=== PATIENT | female | born 1940 | race Caucasian/White ===

== ENCOUNTER 2017-05-12 15:49 | Emergency (ER) | payer MEDICARE ==
[~2017-05-12] VITALS: Ht 157.5 cm; Wt 55.0 kg
[~2017-05-12 15:49] MED LIST: ASPI81TA23 PO; DEXA6TAB PO; METO25TA3 PO; NINLARO PO; OXYC-395 PO; VENL75TA PO; [UNRECOGNIZED DRUG - OTHER] PO
[2017-05-12 15:58] VITALS: BP 135/72; PULSE 98; RESP 16; TEMP 98.8; O2SAT 98
--- NOTE | 2017-05-12 17:00 | PD ---
HPI Chief Complaint: Injury Time Seen by Provider: 17:00 Travel History International Travel<30 days: No Contact w/Intl Traveler<30days: No Traveled to known affect area: No History of Present Illness HPI 76-year-old female here with right foot swelling ecchymosis after a twisting injury 3 days ago. Patient reports she twisted the foot and fell onto the right side. She denies head injury or loss of consciousness. Patient is anticoagulated. She denies headache, nausea or vomiting. She reports mild pain within the right foot. She denies any other symptoms. She sought evaluation today because the foot began to bruise and she was concerned. She has normal sensation. Symptom severity is mild. PFSH Past Medical History Arthritis: Yes Anxiety: Yes Depression: No Heart Rhythm Problems: No Cancer: Yes High Cholesterol: No Chemotherapy: Yes Chest Pain: No Congestive Heart Failure: No Cerebrovascular Accident: Yes Diminished Hearing: No Endocrine: No Genitourinary: No Immune Disorder: No Musculoskeletal: Yes Neurologic: Yes Psychiatric: Yes Reproductive: No Respiratory: No Migraines: No Pneumonia: Yes Radiation Therapy: No Seizures: No Sickle Cell Disease: No Menopausal: Yes Past Surgical History Abdominal Surgery: No Cardiac Surgery: No Ear Surgery: No Endocrine Surgery: No Eye Surgery: No Genitourinary Surgery: No Gynecologic Surgery: No Oral Surgery: No Thoracic Surgery: No Other Surgery: Yes (BONE MARROW) Social History Alcohol Use: Yes (WINE DAILY OR LESS) Tobacco Use: No Substance Use: No Allergies-Medications (Allergen,Severity, Reaction): Coded Allergies: No Known Allergies (Verified Adverse Reaction, Unknown, 05/12/17) Reported Meds & Prescriptions Reported Meds & Active Scripts Active Reported Eliquis (Apixaban) 5 Mg Tab 5 Mg PO BID Acyclovir 800 Mg Tab 800 Mg PO BID Omeprazole 20 Mg Tab 20 Mg PO DAILY Ondansetron (Ondansetron HCl) 8 Mg Tab 8 Mg PO TID PRN Pomalyst (Pomalidomide) 3 Mg Capsule 3 Mg PO DAILY Ninlaro (Ixazomib Citrate) 4 Mg Capsule 4 Mg PO DAILY Effexor (Venlafaxine HCl) 100 Mg Tab 100 Mg PO Q12H Oxycodone (Oxycodone HCl) 10 Mg Tab 10 Mg PO Q6H PRN Metoprolol Tartrate 25 Mg Tab 25 Mg PO BID Dexamethasone 4 Mg Tab 4 Mg PO DAILY Review of Systems Except as stated in HPI: all other systems reviewed are Neg General / Constitutional: No: Fever Eyes: No: Visual changes HENT: No: Headaches Cardiovascular: No: Chest Pain or Discomfort Respiratory: No: Shortness of Breath Gastrointestinal: No: Abdominal Pain Genitourinary: No: Dysuria Neurologic: No: Weakness Physical Exam Narrative GENERAL: Alert well-appearing female in no distress SKIN: Warm and dry. Ecchymosis noted to the right foot dorsal aspect HEAD: Normocephalic. Atraumatic EYES: No scleral icterus. No injection or drainage. NECK: Supple, trachea midline. No JVD or lymphadenopathy. No cervical midline tenderness CARDIOVASCULAR: Regular rate and rhythm without murmurs, gallops, or rubs. No chest wall tenderness RESPIRATORY: Breath sounds equal bilaterally. No accessory muscle use. GASTROINTESTINAL: Abdomen soft, non-tender, nondistended. MUSCULOSKELETAL: No cyanosis. Mild swelling and ecchymosis to the dorsal aspect of the right foot. No bony tenderness. BACK: Nontender without obvious deformity. No CVA tenderness. No tenderness of the spine Data Data Last Documented VS Vital Signs Date Time Temp Pulse Resp B/P (MAP) Pulse Ox O2 Delivery O2 Flow Rate FiO2 05/12/17 15:58 98.8 98 16 135/72 (93) 98 Orders Orders Foot, Complete ([id number]) (05/12/17 ) [facility] Medical Decision Making Medical Screen Exam Complete: Yes Emergency Medical Condition: Yes Differential Diagnosis Midfoot sprain, fracture, contusion Narrative Course 76-year-old female here with right foot swelling ecchymosis after a twisting injury 3 days ago. Patient reports she twisted the foot and fell onto the right side. She denies head injury or loss of consciousness. Patient is anticoagulated. She denies headache, nausea or vomiting. She reports mild pain within the right foot. She denies any other symptoms. She sought evaluation today because the foot began to bruise and she was concerned. She has normal sensation. The extremity is neurovascular intact. She has no signs of ICH. She refuses CAT scan of the brain. She agrees to x-ray the foot. X-ray the foot is negative for fracture. Patient be treated for midfoot sprain/ contusion. Return precautions were discussed. Patient verbalizes understanding and agrees to plan Diagnosis Primary Impression: Right foot sprain Qualified Codes: S93.601A - Unspecified sprain of right foot, initial encounter Referrals: Primary Care Physician Additional Instructions: Ice and elevate the extremity. Follow-up with her doctor. Return to emergency department if he developed new or worsening symptoms. Disposition: 01 DISCHARGE HOME Condition: Stable Monique Ortiz May 12, 2017 17:00
[2017-05-12] MEDS ORDERED: OXYC-395 PO (17:12)
[2017-05-12] MEDS ORDERED: DEXA4TAB PO (17:12)
[2017-05-12] MEDS ORDERED: VENL100T PO (17:12)
[2017-05-12] MEDS ORDERED: IXAZ4CAP PO (17:12)
[2017-05-12] MEDS ORDERED: POMA3CAP PO (17:12)
[2017-05-12] MEDS ORDERED: OMEP20TA93 PO (17:12)
[2017-05-12] MEDS ORDERED: APIX5TAB PO (17:12)
[2017-05-12] MEDS ORDERED: ONDA8TAB7 PO (17:12)
[2017-05-12] MEDS ORDERED: METO25TA3 PO (17:12)
[2017-05-12] MEDS ORDERED: ACYC800T PO (17:12)
--- NOTE | 2017-05-12 17:58 | RADRPT ---
EXAM DATE/TIME: 05/12/2017 17:35 [facility] COMPARISON: No previous studies available for comparison. INDICATIONS : Right foot pain. MEDICAL HISTORY : None. SURGICAL HISTORY : None. ENCOUNTER: Initial ACUITY: 2 days PAIN SCORE: 5/10 LOCATION: Right foot. FINDINGS: 3 views of the right foot demonstrate no fracture or dislocation. Lisfranc joint appears intact. No s oft tissue abnormality or radiopaque foreign body is identified. There is small vessel arterial vascu lar calcification. CONCLUSION: No acute right foot abnormality is identified. Benito Mendenhall MD on May 12, 2017 at 17:54 Board Certified Radiologist. This report was verified electronically.
== END 2017-05-12 18:39 | disposition home or self-care (01) ==
LOC: PHEFT 15:49
DX: S93.601A Unspecified sprain of right foot, initial encounter (principal); W19.XXXA Unspecified fall, initial encounter
CPT/HCPCS: 73630; 99283

== ENCOUNTER 2017-09-09 23:19 | Emergency (ER) | payer MEDICARE ==
[~2017-09-09] VITALS: Ht 157.5 cm; Wt 55.5 kg
[~2017-09-09 23:19] MED LIST changes: +ACYC800T PO; +APIX5TAB PO; -ASPI81TA23 PO; +DEXA4TAB PO; -DEXA6TAB PO; +IXAZ4CAP PO; -NINLARO PO; +OMEP20TA93 PO; +ONDA8TAB7 PO; +POMA3CAP PO; +VENL100T PO; -VENL75TA PO; -[UNRECOGNIZED DRUG - OTHER] PO
[2017-09-09 23:20] VITALS: BP 136/67; PULSE 96; RESP 18; TEMP 97.9; O2SAT 98
[2017-09-09 23:37] VITALS: BP 117/72; PULSE 87; RESP 18; O2SAT 99
[2017-09-10] MEDS ORDERED: [UNRECOGNIZED DRUG - CODE] IV
[2017-09-10] MEDS ORDERED: MORPHINE SULFATE 2 MG/ML SYRINGE IV PUSH ONE ×2 (00:15→02:00)
[2017-09-10] MEDS ORDERED: ONDANSETRON HCL 4 MG/2 ML VIAL IV PUSH ONE (00:15)
--- NOTE | 2017-09-10 00:21 | PD ---
HPI Chief Complaint: General Weakness Time Seen by Provider: 23:42 Travel History International Travel<30 days: No Contact w/Intl Traveler<30days: No Traveled to known affect area: No History of Present Illness HPI 76 years old female complains of low back pain posterior left hip pain and left leg pain. Patient states that she has history of chronic back pain left hip painful on time. Patient states that the pain is worse for the past several days. Patient denies any recent injury. Patient denies any fever chills. Patient states the pain is sharp pain started on the posterior aspect of the left hip with radiation to left leg. Patient states that the pain is worse with weightbearing. Patient has history of multiple myeloma on chemotherapy. Patient has history of CAD, pancytopenia and PE. Patient on aspirin 81 mg daily , metoprolol, dexamethasone, oxycodone, Effexor. PFSH Past Medical History Arthritis: Yes Anxiety: Yes Depression: No Heart Rhythm Problems: No Cancer: Yes (MULTIPLE MYELOMA) High Cholesterol: No Chemotherapy: Yes (X5 weeks) Chest Pain: No Congestive Heart Failure: No Cerebrovascular Accident: Yes Diminished Hearing: No Endocrine: No Genitourinary: No Hypertension: Yes Immune Disorder: No Musculoskeletal: Yes Neurologic: Yes Psychiatric: Yes Reproductive: No Respiratory: No Migraines: No Myocardial Infarction: Yes Pneumonia: Yes Radiation Therapy: No Seizures: No Sickle Cell Disease: No Tetanus Vaccination: Unknown ?: Not Menopausal: Yes Past Surgical History Abdominal Surgery: No Cardiac Surgery: No Ear Surgery: No Endocrine Surgery: No Eye Surgery: No Genitourinary Surgery: No Gynecologic Surgery: No Oral Surgery: No Thoracic Surgery: No Other Surgery: Yes (BONE MARROW) Social History Alcohol Use: Yes (WINE DAILY OR LESS) Tobacco Use: No Substance Use: No Allergies-Medications (Allergen,Severity, Reaction): Coded Allergies: No Known Allergies (Verified Adverse Reaction, Unknown, 09/09/17) Reported Meds & Prescriptions Reported Meds & Active Scripts Active Reported Darzalex Inj (Daratumumab Inj) 100 Mg/5 Ml Soln 100 Mg IV WEEKLY Eliquis (Apixaban) 5 Mg Tab 5 Mg PO BID Acyclovir 800 Mg Tab 800 Mg PO BID Omeprazole 20 Mg Tab 20 Mg PO DAILY Ondansetron (Ondansetron HCl) 8 Mg Tab 8 Mg PO TID PRN Ninlaro (Ixazomib Citrate) 4 Mg Capsule 4 Mg PO DAILY Effexor (Venlafaxine HCl) 100 Mg Tab 100 Mg PO Q12H Oxycodone (Oxycodone HCl) 10 Mg Tab 10 Mg PO Q6H PRN Metoprolol Tartrate 25 Mg Tab 25 Mg PO BID Dexamethasone 4 Mg Tab 4 Mg PO DAILY Review of Systems General / Constitutional: No: Fever Eyes: No: Visual changes HENT: No: Headaches Cardiovascular: No: Chest Pain or Discomfort Respiratory: No: Shortness of Breath Gastrointestinal: No: Abdominal Pain Genitourinary: No: Dysuria Musculoskeletal: Positive: Pain Skin: No Rash Neurologic: No: Weakness Psychiatric: No: Depression Endocrine: No: Polydipsia Hematologic/Lymphatic: No: Easy Bruising Physical Exam Narrative GENERAL: Well-nourished, well-developed patient. SKIN: Focused skin assessment warm/dry. HEAD: Normocephalic. EYES: No scleral icterus. No injection or drainage. NECK: Supple, trachea midline. No JVD or lymphadenopathy. CARDIOVASCULAR: Regular rate and rhythm without murmurs, gallops, or rubs. RESPIRATORY: Breath sounds equal bilaterally. No accessory muscle use. GASTROINTESTINAL: Abdomen soft, non-tender, nondistended. MUSCULOSKELETAL: No cyanosis, or edema. BACK: Patient has moderate tenderness on palpation the left sciatic notch area, without obvious deformity. No CVA tenderness. Positive straight leg raising left leg. Patient has moderate tenderness to palpation lumbar area. Neurologic exam: Patient is awake alert oriented 3. No obvious focal neurologic deficit. Data Data Last Documented VS Vital Signs Date Time Temp Pulse Resp B/P (MAP) Pulse Ox O2 Delivery O2 Flow Rate FiO2 09/10/17 00:41 85 18 128/80 (96) 97 Room Air 09/09/17 23:20 97.9 Orders Orders Complete Blood Count With Diff (09/09/17 23:53) Basic Metabolic Panel (Bmp) (09/09/17 23:53) Iv Access Insert/Monitor (09/09/17 23:53) Ecg Monitoring (09/09/17 23:53) Oximetry (09/09/17 23:53) Ct Lumb Spine W/O Contrast (09/09/17 23:53) Ct Hip W/O Contrast (09/09/17 ) Morphine Inj (Morphine Inj) (09/10/17 00:15) Ondansetron Inj (Zofran Inj) (09/10/17 00:15) Labs Laboratory Tests Test 09/10/17 00:35 White Blood Count 7.5 TH/MM3 Red Blood Count 3.17 MIL/MM3 Hemoglobin 11.8 GM/DL Hematocrit 34.4 % Mean Corpuscular Volume 108.7 FL Mean Corpuscular Hemoglobin 37.3 PG Mean Corpuscular Hemoglobin Concent 34.3 % Red Cell Distribution Width 16.6 % Platelet Count 122 TH/MM3 Mean Platelet Volume 8.2 FL Neutrophils (%) (Auto) 68.0 % Lymphocytes (%) (Auto) 12.7 % Monocytes (%) (Auto) 17.8 % Eosinophils (%) (Auto) 1.3 % Basophils (%) (Auto) 0.2 % Neutrophils # (Auto) 5.2 TH/MM3 Lymphocytes # (Auto) 0.9 TH/MM3 Monocytes # (Auto) 1.3 TH/MM3 Eosinophils # (Auto) 0.1 TH/MM3 Basophils # (Auto) 0.0 TH/MM3 CBC Comment DIFF FINAL Differential Comment Blood Urea Nitrogen 15 MG/DL Creatinine 0.87 MG/DL Random Glucose 91 MG/DL Calcium Level 8.5 MG/DL Sodium Level 138 MEQ/L Potassium Level 3.8 MEQ/L Chloride Level 104 MEQ/L Carbon Dioxide Level 26.5 MEQ/L Anion Gap 8 MEQ/L Estimat Glomerular Filtration Rate 63 ML/MIN [facility] Medical Decision Making Medical Screen Exam Complete: Yes Emergency Medical Condition: Yes Interpretation(s) 1:19 AM. CBC WBC 7.5. Hemoglobin 11.8 hematocrit 34.4. MCV 108.7. Platelet 122. BMP within normal limits. Differential Diagnosis Differential diagnosis includes sciatica, fracture, dislocation. Narrative Course 76 years old female with acute exacerbation of low back pain and left hip pain with radiation the left leg. Morphine 2 mg IV. Zofran 4 mg IV. Diagnosis Primary Impression: Left sided sciatica Additional Impression: Acute exacerbation of chronic low back pain Patient Instructions: General Instructions Additional Instructions: Continue oxycodone as needed for pain. Follow-up with personal physician and pain management. Med/Other Pt SpecificInfo: No Change to Meds Disposition: 01 DISCHARGE HOME Condition: Stable Phill Calloway MD Sep 10, 2017 00:21
[2017-09-10 00:41] VITALS: BP 128/80; PULSE 85; RESP 18; O2SAT 97
[2017-09-10 01:02] LABS: AUTOMATED NEUTROPHIL # 5.2 TH/MM3 (1.8-7.7); BASOPHIL % 0.2 % (0.0-2.0); EOSINOPHIL # 0.1 TH/MM3 (0-0.4); EOSINOPHIL % 1.3 % (0.0-4.0); HEMATOCRIT 34.4 % (35.0-46.0); HEMOGLOBIN 11.8 GM/DL (11.6-15.3); LYMPH % 12.7 % (9.0-44.0); LYMPHOCYTE # 0.9 TH/MM3 (1.0-4.8); MEAN CELL VOLUME 108.7 FL (80.0-100.0); MEAN CORPUSCULAR HEMOGLOBIN 37.3 PG (27.0-34.0); MEAN CORPUSCULAR HGB CONC 34.3 % (32.0-36.0); MEAN PLATELET VOLUME 8.2 FL (7.0-11.0); MONO % 17.8 % (0.0-8.0); MONOCYTE # 1.3 TH/MM3 (0-0.9); PLATELET COUNT 122 TH/MM3 (150-450); RED BLOOD COUNT 3.17 MIL/MM3 (4.00-5.30); RED CELL DISTRIBUTION WIDTH 16.6 % (11.6-17.2); WHITE BLOOD COUNT 7.5 TH/MM3 (4.0-11.0)
[2017-09-10 01:14] LABS: CALCIUM 8.5 MG/DL (8.5-10.1)
[2017-09-10 01:15] LABS: BICARBONATE 26.5 MEQ/L (21.0-32.0)
[2017-09-10 01:18] LABS: CREATININE 0.87 MG/DL (0.50-1.00)
[2017-09-10 01:30] VITALS: BP 125/75; PULSE 86; RESP 18; O2SAT 98
--- NOTE | 2017-09-10 01:37 | RADRPT ---
EXAM DATE/TIME: 09/10/2017 00:57 [facility] COMPARISON: No previous studies available for comparison. INDICATIONS : Lower back pain. History of multiple myeloma. Chemotherapy treatment. RADIATION DOSE: 29.94 CTDIvol (mGy) MEDICAL HISTORY : Multiple myeloma. SURGICAL HISTORY : laser back surgery. ENCOUNTER: Initial ACUITY: 4 - 6 days PAIN SCALE: 10/10 LOCATION: Left Lower back TECHNIQUE: Volumetric scanning of the lumbar spine was performed. Multiplanar reconstructions in the sagittal, coronal and oblique axial planes were performed. Using automated exposure control and adjustment of the mA and/or kV according to patient size, radiation dose was kept as low as reasonably achievable t o obtain optimal diagnostic quality images. DICOM format image data is available electronically for review and comparison. FINDINGS: There is mild right convex lumbar scoliosis. No significant spondylolisthesis. 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 There is superior endplate compression at L2 and 3 levels and slight ventral wedging at L5. These findings appear nonacute. The re is degenerative change present throughout with disc space narrowing and vacuum disc phenomena at L 4-5 and small endplate osteophytes at multiple levels. There is annular disc bulge and brought superi mposed dorsal protrusion at all visualized levels with severe posterior facet arthropathy present thr oughout, most significantly in the lower lumbar spine. Moderate degree of canal compromise related to the above described most significantly at L4-5 and asymmetric to the left. Elsewhere on the exam, note is made of a fibroid uterus with a large probable nabothian cyst in the r egion of the cervix. No evidence of paraspinal mass. CONCLUSION: No definite acute findings. Benito Mireles MD on September 10, 2017 at 1:28 Board Certified Radiologist. This report was verified electronically.
--- NOTE | 2017-09-10 01:39 | RADRPT ---
EXAM DATE/TIME: 09/10/2017 01:00 [facility] COMPARISON: No previous studies available for comparison. INDICATIONS : Left hip pain. History of multiple myeloma. Chemotherapy treatment. RADIATION DOSE: 14.10 CTDIvol (mGy) MEDICAL HISTORY : Hypertension. Multiple myeloma. SURGICAL HISTORY : None. ENCOUNTER: Initial ACUITY: 4 - 6 days PAIN SCALE: 10/10 LOCATION: Left pelvis TECHNIQUE: Volumetric scanning of the hip was performed. Using automated exposure control and adjustment of the mA and/or kV according to patient size, radiation dose was kept as low as reasonably achievable to o btain optimal diagnostic quality images. DICOM format image data is available electronically for rev iew and comparison. FINDINGS: There is bony deformity of the left symphysis pubis which appears to reflect remote trauma. Left hip is grossly intact without fracture or dislocation. There is slight degree of arthritic change. No sharmila dence of joint effusion, periarticular mass or collection. CONCLUSION: No acute bony findings in the left hip Benito Mireles MD on September 10, 2017 at 1:35 Board Certified Radiologist. This report was verified electronically.
[2017-09-10 02:17] VITALS: BP 126/67
== END 2017-09-10 02:30 | disposition home or self-care (01) ==
LOC: PHED 23:19
DX: M54.32 Sciatica, left side (principal); M25.552 Pain in left hip; I25.10 Atherosclerotic heart disease of native coronary artery without angina pectoris; D61.818 Other pancytopenia; F41.9 Anxiety disorder, unspecified; I10 Essential (primary) hypertension; Z86.73 Personal history of transient ischemic attack (TIA), and cerebral infarction without residual deficits; Z86.711 Personal history of pulmonary embolism; Z79.82 Long term (current) use of aspirin
CPT/HCPCS: 72131; 73700; 80048; 85025; 96374; 96375; 96376; 99284; J2270; J2405